=== PATIENT | female | born 1940 | race Caucasian/White ===

== ENCOUNTER 2016-05-03 14:40 | Outpatient (CLI) | payer MEDICARE, OTHER ==
[~2016-05-03 14:40] MED LIST: ASCO1TAB13 PO; B CO1TAB6 PO; BETA300T PO; CRAN400C PO; CYCL30DR EACHEYE; ESTR10TA VG; FLAX100032 PO; GLUC-138 PO; LACT1CAP71 PO; MULT-1168 PO; VITA400C68 PO; [UNRECOGNIZED DRUG - CODE] PO
== END 2016-05-03 23:59 | disposition home or self-care (01) ==
LOC: WOU 14:40
PROVIDERS: ATTEND Surgery
DX: K21.9 Gastro-esophageal reflux disease without esophagitis (principal); R14.2 Eructation; Z90.49 Acquired absence of other specified parts of digestive tract; E03.9 Hypothyroidism, unspecified; K74.0 Hepatic fibrosis
CPT/HCPCS: G0463